=== PATIENT | female | born 1990 | race Hispanic/Latino ===

== ENCOUNTER → 2020-01-18 09:31 | Outpatient (CLI) | payer OTHER, MEDICAID, SELFPAY ==
[2020-01-18 10:43] LABS: Appearance Urine UA CLEAR; Bilirubin Urine UA NEGATIVE (NEGATIVE); Color Urine UA YELLOW; Glucose Urine UA NEGATIVE (Negative); Ketones Urine UA NEGATIVE (NEGATIVE); Leukocyte Esterase Urine UA TRACE (NEGATIVE); Nitrite Urine UA NEGATIVE (Negative); Occult Blood Urine UA NEGATIVE (Negative); Protein Urine UA NEGATIVE (Negative); Urobilinogen Urine UA 0.2 E.U./dL (0.2)
[2020-01-18 10:47] LABS: RBC Urine None Seen (0-5/HPF)
[2020-01-18 11:12] LABS: Squamous Epithelial Cell Urine 5-10 /HPF (0-5/HPF); WBC Urine 1-5/HPF (0-5/HPF)
[2020-01-18 11:13] LABS: Bacteria Urine Few (2-10); Culture Indicated Urine Cult Not Indicated; Sperm Urine PRESENT; Urine Comments CX ALREADY ORDERED
[2020-01-18 11:16] LABS: Add Manual Diff / Slide Review NO; Basophils Absolute Auto 0 /uL (0-100); Basophils Percent Auto 0.2 % (0-2); Eosinophils Absolute Auto 100 /uL (0-450); Eosinophils Percent Auto 0.7 % (2-4); Hematocrit 37.5 % (36-46); Hemoglobin 12.4 g/dL (12.0-16.0); Lymphocytes Absolute Auto 1900 /uL (1100-4500); Mean Corpuscular HGB Conc 33.1 % (30-36); Mean Corpuscular Hemoglobin 27.5 PG (26-34); Mean Corpuscular Volume 83.1 fL (80-100); Monocytes Absolute Auto 400 /uL (0-900); Monocytes Percent Auto 4.7 % (3-14); Neutrophils Absolute Auto 6900 /uL (1500-7000); Neutrophils Percent Auto 74.4 % (50-75); Platelet Count 223 X10^3/uL (150-400); Red Blood Cell Count 4.51 X10^6/uL (4.0-5.2); Red Cell Distribution Width 14.5 % (11.6-14.8); White Blood Cell Count 9.3 X10^3/uL (4.5-11.0)
[2020-01-18 14:56] LABS: Urine N gonorrhoeae NOT DETECTED
[2020-01-18 15:00] LABS: Urine Chlamydia NOT DETECTED
[2020-01-18 15:56] LABS: Hepatitis B Surface Antigen NEGATIVE s/c (NEGATIVE)
[2020-01-18 16:14] LABS: HIV 1 & 2 Ab/Ag 4th Gen Combo NEGATIVE (NEGATIVE); Hep C Virus Ab w/Reflex Quant NEGATIVE s/c (NEGATIVE)
[2020-01-19 05:36] LABS: RPR Screen Non Reactive (Non Reactive)
[2020-01-19 10:12] LABS: Varicella IgG Antibody 1190 index (Immune >165)
== END ==
PROVIDERS: Visit Provider Specialist
DX: Z34.81 Encounter for supervision of other normal pregnancy, first trimester (principal); Z11.3 Encounter for screening for infections with a predominantly sexual mode of transmission
CPT/HCPCS: 36415; 80055; 81003; 81015; 86787; 86803; 86850; 86900; 86901; 87086; 87389; 87491; 87591

== ENCOUNTER → 2020-01-18 09:44 | Outpatient (CLI) | payer OTHER, MEDICAID, SELFPAY | PROVIDERS: Referring Provider Specialist; Visit Provider Specialist | CPT/HCPCS: G0379 ==

== ENCOUNTER → 2020-04-04 10:20 | Outpatient (CLI) | payer OTHER, MEDICAID, SELFPAY ==
[2020-04-09 20:07] LABS: AFP, Serum 39.8 ng/mL (.); Calc Gestational Age Ultrasound (.); Estriol, Free 1.88 ng/mL (.); Inhibin A, Dimeric 243.59 pg/mL (.); Inhibin A, MoM 1.44 (.); Maternal Ethnicity Other (.); Maternal Weight 144 lbs (.); Number of Fetuses No (.); OSBR Risk 1 IN 10000 (.); Results Report (.); Test Results *Screen Negative* (.); hCG, MoM 1.22 (.); hCG, Serum 35359 mIU/mL (.)
== END ==
PROVIDERS: PCP Specialist; Referring Provider Specialist; Visit Provider Specialist
DX: Z34.82 Encounter for supervision of other normal pregnancy, second trimester (principal); Z3A.18 18 weeks gestation of pregnancy
CPT/HCPCS: 36415; 82105; 82677; 84702; 86336

== ENCOUNTER 2020-06-11 18:27 | Outpatient (CLI) | payer OTHER, MEDICAID, SELFPAY ==
[2020-06-11 19:02] LABS: Appearance Urine UA CLEAR; Bilirubin Urine UA NEGATIVE (NEGATIVE); Color Urine UA YELLOW; Glucose Urine UA NEGATIVE (Negative); Ketones Urine UA NEGATIVE (NEGATIVE); Leukocyte Esterase Urine UA 2+ (NEGATIVE); Nitrite Urine UA NEGATIVE (Negative); Occult Blood Urine UA NEGATIVE (Negative); Protein Urine UA NEGATIVE (Negative); RBC Urine None Seen (0-5/HPF); Urobilinogen Urine UA 0.2 E.U./dL (0.2)
[2020-06-11 19:10] LABS: Bacteria Urine Moderate (10-30); Culture Indicated Urine Cult Not Indicated; Squamous Epithelial Cell Urine 10-30 /HPF (0-5/HPF); WBC Urine 5-10/HPF (0-5/HPF)
== END 2020-06-11 19:45 | disposition home or self-care (01) ==
LOC: LABOR 18:46 → OB 06-12 08:32
PROVIDERS: Referring Provider Obstetrics & Gynecology; Visit Provider Obstetrics & Gynecology
DX: O36.8120 Decreased fetal movements, second trimester, not applicable or unspecified (principal); Z3A.27 27 weeks gestation of pregnancy
CPT/HCPCS: 59025; 81001; G0378; G0379

== ENCOUNTER → 2020-08-05 13:19 | Outpatient (CLI) | payer OTHER, MEDICAID, SELFPAY ==
[2020-08-08 22:01] LABS: Strep Grp B PCR NEG for Grp B Strep
== END ==
PROVIDERS: PCP Family Medicine; Visit Provider Specialist
DX: Z34.83 Encounter for supervision of other normal pregnancy, third trimester (principal); Z3A.36 36 weeks gestation of pregnancy
CPT/HCPCS: 87653

== ENCOUNTER 2020-08-29 09:12 | Inpatient (IN) | payer OTHER, MEDICAID, SELFPAY ==
[2020-08-29] MEDS: LACTATED RINGERS 1,000 ML 1000 ML IV ×3 (11:15→14:12)
[2020-08-29 11:33] LABS: Add Manual Diff / Slide Review NO; Basophils Absolute Auto 100 /uL (0-100); Basophils Percent Auto 0.6 % (0-2); Eosinophils Absolute Auto 100 /uL (0-450); Eosinophils Percent Auto 1.1 % (2-4); Hematocrit 30.2 % (36-46); Hemoglobin 10.2 g/dL (12.0-16.0); Lymphocytes Absolute Auto 2200 /uL (1100-4500); Lymphocytes Percent Auto 23.9 % (25-40); Mean Corpuscular HGB Conc 33.9 % (30-36); Mean Corpuscular Hemoglobin 26.1 PG (26-34); Mean Corpuscular Volume 76.9 fL (80-100); Monocytes Absolute Auto 600 /uL (0-900); Monocytes Percent Auto 6.1 % (3-14); Neutrophils Absolute Auto 6300 /uL (1500-7000); Neutrophils Percent Auto 68.3 % (50-75); Platelet Count 170 X10^3/uL (150-400); Red Blood Cell Count 3.93 X10^6/uL (4.0-5.2); Red Cell Distribution Width 15.3 % (11.6-14.8); White Blood Cell Count 9.2 X10^3/uL (4.5-11.0)
--- NOTE | 2020-08-29 12:07 | PM.PREOP ---
Pre-operative Note COVID-19 COVID-19 status: Negative Result date/Date tested (Pos, Neg/Pending): 08/27/20 Interval Note History & Physical reviewed/Exam performed by Physician: Yes Changes to H&P: No
--- NOTE | 2020-08-29 12:15 | P.HPOB_ITS ---
OB HPI Date/Time Date of admission: 08/29/20 Date Patient Seen: 08/29/20 Time Patient Seen: 12:15 History of Present Condition Chief complaint: REPEAT : 2 Para: 1 Estimated Date of Delivery: 09/04/20 Estimated Gestational Age (weeks): 39 Narrative: Chasity Mackay is a 30 year old female admitted for repeat section at 39 weeks Indications Operative indications ( section): previous uterine surgery (Prior C- section) History of Present care: good care, initiated at week # (7), number of visits (10) and pounds weight gain (18) Dating criteria: based on 1st trimester US only Ultrasounds: normal mid trimester US Obstetrical complications: none Medical complications: none Preadmission Labs Blood type: A (-) negative -: Antibody screen: negative, GBS status: negative, HBsAG: negative, HIV: negative and RPR/VDLR: negative -: Chlamydia screen: not detected and Gonorrhea screen: not detected -: Rubella: immune and Varicella: immune HCAB: negative Quad screen: Normal 1 hr GTT: 131 Prior (ies) History: 08/07/2016 41 week gestation, for distress with general anesthesia female infant weighing 6 lb 4 oz Evaluation Evaluation Baseline heart rate: 120 Variability: Moderate (11-25) monitor accelerations: Present monitor decelerations: Absent Contraction Frequency (minutes): 7 Uterine Contraction Intensity: Mild Category of Tracing: Reactive Status: Category l Laboratory results: Laboratory Tests 08/29/20 11:15 WBC 9.2 RBC 3.93 L Hgb 10.2 L Hct 30.2 L MCV 76.9 L MCH 26.1 MCHC 33.9 RDW 15.3 H Plt Count 170 Neut % (Auto) 68.3 Lymph % (Auto) 23.9 L [place] % (Auto) 6.1 Eos % (Auto) 1.1 L Baso % (Auto) 0.6 Neut # (Auto) 6300 Lymph # (Auto) 2200 [place] # (Auto) 600 Eos # (Auto) 100 Baso # (Auto) 100 PFSH Medical History (Updated 08/12/20 @ 09:04 by Nivia Whitaker MD) Anxiety Headache (~2011) Hepatic steatosis Irregular menstrual cycle (~2001) Surgical History (Updated 03/04/20 @ 20:41 by Lynn Mendoza) Anesthesia S/P laparoscopic cholecystectomy (~01/2018) S/P primary low transverse (~08/07/16) [place] teeth removed (~2014) Family History (Updated 03/04/20 @ 20:58 by Lynn Mendoza) Mother Hypertension Father Altered renal tissue perfusion Depression Stroke Grandfather No problems noted. 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 : wants to be a nurse here in the ) occupational status: unemployed current occupational exposures/hazards: No special bj needs: No Smoking Status: Never smoker second hand exposure: No alcohol intake: former (pre- : occasional ) substance use type: does not use Meds Home Medications and Allergies Home Medications Medication Instructions Recorded Confirmed Type prenat.vits,chika,bug-yswf-jolsl 1 tab PO DAILY 01/17/20 08/12/20 History fluconazole 150 mg tablet 150 mg PO Q3D #2 tab 05/08/20 08/12/20 Rx omeprazole 40 mg capsule,delayed 40 mg PO DAILY #30 cap 07/18/20 08/12/20 Rx release Allergies Allergy/AdvReac Type Severity Reaction Status Date / Time No Known Drug Allergies Allergy Verified 06/03/20 09:34 Review of Systems Review of Systems Narrative: Patient denies headaches, scotomata, epigastric pain. Good movement. No leakage of fluid. No significant contractions. ROS: Yes All systems reviewed with the patient and are negative except as otherwise documented Exam Vital Signs (past 8 hours): Blood pressure 105/66, pulse 71, temperature 35.5? Narrative Exam Narrative: HEENT exam within normal limits. Lungs are clear to auscultation percussion. Heart is regular rate and rhythm no S3-S4 or murmurs. Abdomen is gravid. Fetus is vertex. Extremities without edema and nontender. Objective Labs Result Diagrams: 08/29/20 11:15 Labs: Laboratory Results - last 24 hr 08/29/20 11:15 WBC 9.2 RBC 3.93 L Hgb 10.2 L Hct 30.2 L MCV 76.9 L MCH 26.1 MCHC 33.9 RDW 15.3 H Plt Count 170 Neut % (Auto) 68.3 Lymph % (Auto) 23.9 L [place] % (Auto) 6.1 Eos % (Auto) 1.1 L Baso % (Auto) 0.6 Neut # (Auto) 6300 Lymph # (Auto) 2200 [place] # (Auto) 600 Eos # (Auto) 100 Baso # (Auto) 100 Assessment and Plan Assessment and Plan Assessment and Plan narrative: 39 week gestation for repeat section. Patient was COVID negative 2 days ago. Time Spent with Patient Total time spent with greater than 50% in coordination of care (as documented) at patient's floor/unit and/or counseling patient:: less than 15 minutes
[2020-08-29 12:22] VITALS: BP 101/66
[2020-08-29] MEDS: CEFAZOLIN 2 GM/100 ML FROZ.PIGGY IV (13:51)
--- NOTE | 2020-08-29 14:17 | SUR.OPER ---
Supine on Padded OR bed, head on pillow, safety belt at thigh, arms secured on padded arm boards at <90 degrees abduction. Bump under right buttock. Legs uncrossed with pillow under knees, gel pad to heels, tape over blanket to lower legs.
--- NOTE | 2020-08-29 14:17 | SUR.OPER ---
Viable male baby born at 1410. Placenta delivered at 1411. cord blood tubes X2 and placenta given to Taylor Haddad&Allen RODRIGES.
[2020-08-29 14:48] VITALS: BP 93/58; PULSE 68; RESP 12; TEMP 36.6; O2SAT 100
[2020-08-29 14:51] VITALS: BP 99/59; PULSE 69; RESP 14; O2SAT 100
--- NOTE | 2020-08-29 14:54 | P.OP_ITS ---
Operative Date/Time/Diagnoses Date of procedure: 08/29/20 Time of procedure: 14:54 Pre-op diagnosis: 39 week gestation with prior section Post-op diagnosis: same Procedure & Clinicians Procedure: repeat low-transverse section Same procedure as scheduled: Yes Indications: 39 week gestation with prior section Surgeon: Nivia Whitaker Site Superintendent: Loni Lockhart Click Yes if Unassisted: No Anesthesia Type: Spinal Operative Notes Findings: normal tubes, and ovaries, uterus with viable male , Apgars of 8 and 9, weight 8 lb 4 oz Closure Type: primary Specimen(s): none sent Applied: catheter ( Eubanks) Estimated Blood Loss (mL): 300 Blood products transfused: none Procedure in detail: The patient was brought to the operating room where she underwent a spinal for anesthesia. She was placed in a supine position with a left lateral tilt. A Eubanks catheter was placed. Pulsatile stockings were placed and functional throughout the case. 2 g of Ancef were given IV prior to the incision. Warming was in place. The patient was prepped and draped in usual sterile fashion. A low transverse incision was made with a scalpel and the incision was carried down to the fascial layer which was incised transversely with scissors. The training and development assistant did her side of the incision. The midline attachments are superiorly and inferiorly. Some bleeding was controlled Bovie. The rectus muscles were in the midline and the peritoneal incision was made with no damage to internal structures. The peritoneum was incised and superiorly and inferiorly. The incision was stretched with the surgeon and training and development assistant placing traction. Bladder blade was placed and a bladder flap was developed and the bladder held away from the lower uterine segment. An incision was made in the uterus with the scalpel and the incision was extended with stretching. The head was elevated out of the abdomen and with fundal pressure by the training and development assistant the baby was delivered. The was bulb suctioned for clear fluid and handed off to the warmer. Cord blood was collected. The placenta delivered spontaneously with traction. The uterus was cleaned with clean laps. The uterine incision was closed in 2 layers of 0 chromic suture the first a running locking layer the second an imbricating layer. The training and development assistant was helping to expose the incision. The bladder peritoneum was repaired with 2- 0 Vicryl suture. The gutters were cleaned of any remaining fluids and ovaries and tubes were observed to be normal. Adequate hemostasis was noted. The perineum was closed with 2-0 Vicryl suture. The fascia layer was closed with 0 Vicryl suture with 2 stitches. The training and development assistant repairing half the incision with helping to retract and expose the incision for the other half. The incision was irrigated and adequate hemostasis noted. The incision was closed with interrupted 3-0 Vicryl sutures and then a subcuticular stitch of 4-0 Vicryl suture. Steri-Strips were placed. The uterus was massaged to remove any clots. The patient went to recovery room in good condition. Counts of instruments and sponges were correct. Dr. Lockhart was present throughout the case to assist with retraction, fundal pressure to deliver the , and suturing half the fascia. Complications: none Post-operative Condition: stable Disposition: other ( Center) Plan for aftercare: routine post section care
[2020-08-29 14:56] VITALS: BP 99/60; PULSE 64; RESP 14; O2SAT 100
[2020-08-29 15:01] VITALS: BP 94/58; PULSE 55; RESP 14; O2SAT 100
[2020-08-29 15:13] VITALS: BP 100/61; PULSE 73; RESP 16; TEMP 36.1; O2SAT 100
--- NOTE | 2020-08-29 15:23 | SUR.PHASEI ---
BEDSIDE REPORT GIVEN TO ROBYN PUGH RN. PATIENT IS STABLE CONDITION.
[2020-08-29] MEDS: OXYCODONE IR 5 MG TABLET PO ×2 (16:01→21:00)
[2020-08-29] MEDS: LACTATED RINGERS 1,000 ML 100 ML IV ×2 (16:02→23:08)
[2020-08-29] MEDS: ONDANSETRON 4 MG/2 ML INJ IV (18:54)
[2020-08-29] MEDS: KETOROLAC 30 MG/ML VIAL IV (21:00)
[2020-08-29] MEDS: LANOLIN OINT 7 GM 1 APPLIC TOP (21:11)
[2020-08-30] MEDS: OXYCODONE IR 5 MG TABLET PO ×2 (01:17→08:13)
[2020-08-30 03:12] VITALS: TEMP 37.1
[2020-08-30] MEDS: KETOROLAC 30 MG/ML VIAL IV ×2 (03:12→08:12)
[2020-08-30] MEDS: ONDANSETRON 4 MG/2 ML INJ IV (03:20)
[2020-08-30 06:44] LABS: Add Manual Diff / Slide Review NO; Basophils Absolute Auto 0 /uL (0-100); Basophils Percent Auto 0.4 % (0-2); Eosinophils Absolute Auto 100 /uL (0-450); Eosinophils Percent Auto 0.6 % (2-4); Hematocrit 24.3 % (36-46); Hemoglobin 8.1 g/dL (12.0-16.0); Lymphocytes Absolute Auto 2000 /uL (1100-4500); Lymphocytes Percent Auto 20.1 % (25-40); Mean Corpuscular HGB Conc 33.2 % (30-36); Mean Corpuscular Hemoglobin 25.8 PG (26-34); Mean Corpuscular Volume 77.7 fL (80-100); Monocytes Absolute Auto 700 /uL (0-900); Neutrophils Absolute Auto 7200 /uL (1500-7000); Neutrophils Percent Auto 71.9 % (50-75); Platelet Count 147 X10^3/uL (150-400); Red Blood Cell Count 3.12 X10^6/uL (4.0-5.2); Red Cell Distribution Width 15.2 % (11.6-14.8)
[2020-08-30] MEDS: DOCUSATE 250 MG CAPSULE PO (08:12)
--- NOTE | 2020-08-30 09:48 | PM.OBDS.1 ---
Discharge Providers Provider Date of admission: 08/29/20 09:12 Discharge Date: 08/30/20 Primary care physician: Osmel Valdes MD Consults: 08/29/20 15:39 Consult to Director Human Services Routine Comment: Discharge provider: Nivia Whitaker MD Summary Hospital Course Date Patient Seen: 08/30/20 Time Patient Seen: 09:48 Diagnoses: Repeat low-transverse section Hospital Course: Patient was admitted for repeat low-transverse section. She is urinating well, ambulatory, without significant pain. She is passing gas. She is tolerating regular diet. She denies headaches, scotomata, epigastric pain. Breast-feeding is going well. Peripartum Data Infant Delivery Method: Section (Repeat) Procedures: Repeat low-transverse section complications: none 1: Gender: Male Disposition of : home Discharge Diagnosis (1) S/P repeat low transverse : Status: Acute Status at Discharge Cognitive/behavioral status at discharge: oriented Functional status at discharge: independent ambulation Overall status at discharge: patient is progressing back to baseline Time Spent with Patient Time attestation: Total time spent providing and/or coordinating discharge services: Time spent: Less than 30 minutes Objective Labs Result Diagrams: 08/30/20 06:30 Labs: Laboratory Results - last 24 hr 08/29/20 08/29/20 08/30/20 11:15 11:15 06:30 WBC 9.2 RBC 3.93 L Hgb 10.2 L Hct 30.2 L MCV 76.9 L MCH 26.1 MCHC 33.9 RDW 15.3 H Plt Count 170 Neut % (Auto) 68.3 Lymph % (Auto) 23.9 L [place] % (Auto) 6.1 Eos % (Auto) 1.1 L Baso % (Auto) 0.6 Neut # (Auto) 6300 Lymph # (Auto) 2200 [place] # (Auto) 600 Eos # (Auto) 100 Baso # (Auto) 100 Blood Type A Negative Antibody Screen Positive Antibody Identification Anti-D Maternal Bleed Negative 08/30/20 06:30 WBC 10.0 RBC 3.12 L Hgb 8.1 L Hct 24.3 L MCV 77.7 L MCH 25.8 L MCHC 33.2 RDW 15.2 H Plt Count 147 L Neut % (Auto) 71.9 Lymph % (Auto) 20.1 L [place] % (Auto) 7.0 Eos % (Auto) 0.6 L Baso % (Auto) 0.4 Neut # (Auto) 7200 H Lymph # (Auto) 2000 [place] # (Auto) 700 Eos # (Auto) 100 Baso # (Auto) 0 Blood Type Antibody Screen Antibody Identification Maternal Bleed Exam Vital Signs (past 8 hours): Blood pressure 108/68, pulse of 83, temperature 99.4?- 08/30/20 03:12 Temperature 98.8 F Oxygen Delivery Method Room Air Oxygen Flow Rate 0 Narrative Exam Narrative: Abdomen is soft, nontender. Uterus is firm, at U, appropriately tender. Dressing is clean, dry, intact. Mild lochia. Extremities with trace edema and nontender. Patient is Rh negative babies Rh positive she will receive RhoGAM prior to discharge, she is rubella immune, she received Tdap in the 3rd trimester. Discharge Plan Discharge Plan Patient Disposition: Home Discharge orders & Medications Prescriptions: New ibuprofen 600 mg Tablet 600 mg PO Q6HR PRN (Reason: Fever/Mild Pain (1-3)) Qty: 30 RF: 0 oxycodone 5 mg Tablet 5 mg PO Q4HR PRN (Reason: Pain, Moderate (4-6)) Qty: 30 RF: 0 ferrous gluconate 324 mg (37.5 mg iron) tablet 324 mg PO DAILY Qty: 30 RF: 0 Continued prenat.vits,chika,umf-sdbv-cuybj Tablet 1 tab PO DAILY RF: 0 Follow up/Referrals: Nivia Whitaker MD [Physician] - 09/04/20 (Follow-up in [facility] with Dr. Whitaker) Osmel Valdes MD [Primary Care Provider] - Diet/Activity/Treatments Diet: Regular Activity: Nothing in vagina or lifting over 20 lb for 6 weeks Skin/Wound/Dressing Care Report to your healthcare provider any signs of infection, such as:: chills, fever, increased pain, unusual drainage and unusual redness Dressing: May remove dressing tonight. Leave Steri-Strips in place. Can get wet just pat dry Visit Report/Discharge Packet Stand Alone Forms: Discharge: Care Discharge Data Primary Care Provider: Osmel Valdes
[2020-08-30 12:06] VITALS: BP 111/60; PULSE 74; RESP 17; TEMP 37
[2020-08-30] MEDS: RHO(D) IMMUNE GLOBULIN 1,500 UNIT SYRINGE 1500 UNIT IM (15:33)
== END 2020-08-30 15:45 | disposition home or self-care (01) | DRG 540 ==
PROVIDERS: Admitting Provider Specialist; PCP Family Medicine; Referring Provider Specialist; Visit Provider Specialist
PROC: 10D00Z1 Extraction of Products of Conception, Low, Open Approach (ICD-10-PCS; CPT 59514; principal; 2020-08-29 11:15)
DX: O34.211 Maternal care for low transverse scar from previous cesarean delivery (principal); Z3A.39 39 weeks gestation of pregnancy; Z37.0 Single live birth
CPT/HCPCS: 36415; 59050; 59514; 85025; 85461; 86850; 86870; 86900; 86901; J0690; J1885; J2274; J2405; J2590; J2790

== ENCOUNTER → 2023-06-23 08:33 | Outpatient (CLI) | payer OTHER, MEDICAID, SELFPAY ==
[2023-06-23 08:43] LABS: Miscellaneous to LabCorp NATERA
[2023-06-23 10:22] LABS: Alanine Aminotransferase 39 IU/L (<35); Albumin 4.2 g/dL (3.5-5.0); Albumin Globulin Ratio 1.4 (1.0-2.8); Alkaline Phosphatase 62 U/L (38-126); Aspartate Aminotransferase 32 IU/L (14-36); BUN Creatinine Ratio 18.4 (6-22); Bilirubin Total 0.5 mg/dL (0.2-1.3); Blood Urea Nitrogen 9 mg/dL (7-17); Calcium 9.6 mg/dL (8.4-10.2); Carbon Dioxide 22 mmol/L (22-32); Chloride 102 mmol/L (98-107); Estimated Glomerular Filt Rate > 60 mL/min (>60); Globulin 3.1 g/dL (1.7-4.1); Glucose 82 mg/dL (70-100); HEMOLYSIS < 15 (0-50); Potassium 3.8 mmol/L (3.4-5.1); Sodium 134 mmol/L (137-145); Total Protein 7.3 g/dL (6.3-8.2)
[2023-06-23 10:25] LABS: Urine N gonorrhoeae NOT DETECTED
[2023-06-23 10:27] LABS: Urine Chlamydia NOT DETECTED
[2023-06-23 10:58] LABS: Hepatitis B Surface Antigen NEGATIVE s/c (NEGATIVE)
[2023-06-23 11:15] LABS: Hep C Virus Ab w/Reflex Quant NEGATIVE s/c (NEGATIVE)
== END ==
PROVIDERS: PCP Student in an Organized Health Care Education/Training Program; Referring Provider Student in an Organized Health Care Education/Training Program; Visit Provider Student in an Organized Health Care Education/Training Program
DX: Z34.81 Encounter for supervision of other normal pregnancy, first trimester (principal); K76.0 Fatty (change of) liver, not elsewhere classified; Z3A.10 10 weeks gestation of pregnancy
CPT/HCPCS: 36415; 80053; 86803; 86850; 86900; 86901; 87086; 87340; 87491; 87591

== ENCOUNTER → 2023-08-04 10:29 | Outpatient (CLI) | payer OTHER, MEDICAID, SELFPAY ==
[2023-08-05 15:22] LABS: Candida species Positive (Negative); Gardnerella vaginalis Positive (Negative); Trichomoas vaginalis Negative (Negative)
== END ==
PROVIDERS: PCP Student in an Organized Health Care Education/Training Program; Visit Provider Student in an Organized Health Care Education/Training Program
DX: O34.219 Maternal care for unspecified type scar from previous cesarean delivery (principal); N89.8 Other specified noninflammatory disorders of vagina
CPT/HCPCS: 87086; 87480; 87510; 87660

== ENCOUNTER → 2023-08-04 10:38 | Outpatient (CLI) | payer OTHER, MEDICAID, SELFPAY ==
[2023-08-04 11:59] LABS: Add Manual Diff / Slide Review NO; Basophils Absolute Auto 0 /uL (0-100); Basophils Percent Auto 0.4 % (0-2); Eosinophils Absolute Auto 100 /uL (0-450); Eosinophils Percent Auto 1.1 % (2-4); Hematocrit 31.8 % (36-46); Hemoglobin 11.1 g/dL (12.0-16.0); Lymphocytes Absolute Auto 2000 /uL (1100-4500); Lymphocytes Percent Auto 20.7 % (25-40); Mean Corpuscular HGB Conc 34.9 % (30-36); Mean Corpuscular Hemoglobin 28.7 PG (26-34); Mean Corpuscular Volume 82.3 fL (80-100); Monocytes Absolute Auto 500 /uL (0-900); Monocytes Percent Auto 5.3 % (3-14); Neutrophils Absolute Auto 6900 /uL (1500-7000); Neutrophils Percent Auto 72.5 % (50-75); Platelet Count 206 X10^3/uL (150-400); Red Blood Cell Count 3.86 X10^6/uL (4.0-5.2); Red Cell Distribution Width 14.7 % (11.6-14.8); White Blood Cell Count 9.5 X10^3/uL (4.5-11.0)
[2023-08-05 04:38] LABS: RPR Screen Non Reactive (Non Reactive)
[2023-08-05 17:44] LABS: HIV 1 & 2 Ab/Ag 4th Gen Combo NEGATIVE (NEGATIVE); Hepatitis B Surface Antigen NEGATIVE s/c (NEGATIVE); Rubella Antibody IgG 30.5 IU/mL (>15)
[2023-08-06 08:25] LABS: Varicella IgG Antibody 877 index (Immune >165)
[2023-08-06 22:34] LABS: AFP Value 36.3 ng/mL (.); Gest Age on Col Date 16.7 weeks (.); Gestational Age As provided (.); Insulin Dep Diabetes No (.); OSBR Risk 1IN 10000 (.); Results Report (.); Test Results *Screen Negative* (.)
== END ==
PROVIDERS: PCP Student in an Organized Health Care Education/Training Program; Referring Provider Student in an Organized Health Care Education/Training Program; Visit Provider Student in an Organized Health Care Education/Training Program
DX: O34.219 Maternal care for unspecified type scar from previous cesarean delivery (principal); O99.891 Other specified diseases and conditions complicating pregnancy; N89.8 Other specified noninflammatory disorders of vagina; Z3A.16 16 weeks gestation of pregnancy
CPT/HCPCS: 36415; 80055; 82105; 86787; 87086; 87389; 87480; 87510; 87660

== ENCOUNTER → 2023-08-30 08:16 | Outpatient (CLI) | payer OTHER, MEDICAID, SELFPAY ==
--- NOTE | 2023-08-30 08:18 | DI.US.S_ITS ---
PROCEDURE: US OB >= 14 WEEKS FETUS INDICATIONS: ANATOMY OUTSIDE/PRIOR DATING DATA: Last menstrual period (LMP): 04/09/2023 LMP-based estimated date of delivery (ILIA): 12/24/2023. First dating scan (date and location): 05/26/2023. Estimated date of delivery (ILIA) from first dating scan: 01/14/2024. TECHNIQUE: Real-time scanning was performed of the fetus, with image documentation and biometric measurements. COMPARISON: [facility], OB <= 14 WEEKS FETUS, 06/23/2023, 8:27. Merged with [facility], OB >= 14 WEEKS FETUS, 06/03/2020, 9:53. FINDINGS: General: A single living intrauterine gestation is present. Presentation: Breech. Placenta: Placental position is posterior , without previa. Amniotic fluid index: 11.2 cm, normal range is 5-24 cm. Single deepest vertical pocket is 4.9 cm. heart rate: 144 beats per minute. Maternal cervical canal: 3.1 cm long. Normal lower limit is 2.5 cm. biometrics: Biparietal diameter: 21 weeks 1 day Head circumference: 20 weeks 4 days Abdominal circumference: 21 weeks 6 days Femur length: 20 weeks 3 days Clinically estimated gestational age: 20 weeks 3 days Composite gestational age from present scan: 21 weeks Estimated weight and percentile: 4 1 g; 80 second percentile Anatomic survey: Neuro: Ventricles are non-dilated at less than 10 mm. Cisterna magna is normal at 3-11 mm. Cerebellum is normal in size and morphology. Nuchal skin fold: Normal at less than 6 mm between 14-21 weeks gestational age. Face: Nose and lips, facial profile are normal. Spine: No evidence for spina bifida. Heart: 4-chambered heart is present, with normal ventricular outflow tracts. Diaphragm: Diaphragm is intact. Stomach: Left-sided stomach is present. Kidneys: No hydronephrosis. Normal is less than 5 mm in 2nd trimester, less than 7 mm in 3rd trimester. Cord: 3-vessel cord has orthotopic insertion. Bladder: Normal in size. Extremities: All 4 extremities identified. IMPRESSION: 1. Single living IUP redemonstrated and interval growth is normal. 2. Normal anatomic survey. We strive to produce accurate, complete, and clear reports of imaging services. To assist us in improving patient care, this report was composed using standard report templates and voice recognition software. Therefore, it may contain abnormal punctuation, insertions and/or omissions. Occasional wrong-word or sound-alike substitutions may occur. Though we review the report and make efforts to correct it, we do recommend that the report be read carefully in proper context to recognize any text inaccuracies. Dictated by: Mj MCCOLLUM Interpreted: Crow Vinson MD on 08/30/2023 at 9:54 Transcribed by: TATIANA on 08/30/2023 at 9:57 Approved by: Crow Vinson M.D. on 08/30/2023 at 22:08
== END ==
LOC: US 08:16
PROVIDERS: PCP Student in an Organized Health Care Education/Training Program; Referring Provider Student in an Organized Health Care Education/Training Program; Visit Provider Student in an Organized Health Care Education/Training Program
DX: O34.219 Maternal care for unspecified type scar from previous cesarean delivery (principal); O99.891 Other specified diseases and conditions complicating pregnancy; N89.8 Other specified noninflammatory disorders of vagina; Z3A.21 21 weeks gestation of pregnancy
CPT/HCPCS: 76811; 87480; 87510; 87660

== ENCOUNTER → 2023-08-30 16:03 | Outpatient (CLI) | payer OTHER, MEDICAID, SELFPAY ==
[2023-09-01 13:36] LABS: Candida species Positive (Negative); Gardnerella vaginalis Positive (Negative); Trichomoas vaginalis Negative (Negative)
== END ==
PROVIDERS: PCP Student in an Organized Health Care Education/Training Program; Visit Provider Obstetrics & Gynecology
DX: N89.8 Other specified noninflammatory disorders of vagina (principal)
CPT/HCPCS: 87480; 87510; 87660

== ENCOUNTER → 2023-10-02 08:37 | Outpatient (CLI) | payer OTHER, MEDICAID, SELFPAY ==
[2023-10-02 11:05] LABS: Hematocrit 28.9 % (36-46)
[2023-10-02 11:37] LABS: GTT (PREG) 1 Hour PP 50gm Dose 129 mg/dL (76-139)
== END ==
LOC: LAB 08:39
PROVIDERS: PCP Student in an Organized Health Care Education/Training Program; Referring Provider Student in an Organized Health Care Education/Training Program; Visit Provider Student in an Organized Health Care Education/Training Program
DX: O26.899 Other specified pregnancy related conditions, unspecified trimester (principal); Z67.91 Unspecified blood type, Rh negative; Z3A.25 25 weeks gestation of pregnancy
CPT/HCPCS: 36415; 82950; 85014; 85018; 86850

== ENCOUNTER → 2023-12-17 10:31 | Outpatient (CLI) | payer OTHER, MEDICAID, SELFPAY ==
[2023-12-17 11:03] LABS: Hematocrit 32.5 % (36-46); Hemoglobin 11.3 g/dL (12.0-16.0)
[2023-12-18 16:44] LABS: Strep Grp B PCR NEG for Grp B Strep
== END ==
PROVIDERS: PCP Student in an Organized Health Care Education/Training Program; Referring Provider Student in an Organized Health Care Education/Training Program; Visit Provider Student in an Organized Health Care Education/Training Program
DX: O99.019 Anemia complicating pregnancy, unspecified trimester (principal); Z3A.36 36 weeks gestation of pregnancy
CPT/HCPCS: 36415; 85014; 85018; 87653

== ENCOUNTER 2024-01-07 06:07 | Inpatient (IN) | payer OTHER, MEDICAID, SELFPAY ==
--- NOTE | 2024-01-07 | PATH_ITS ---
[facility] Accession Number: [id number] No. of containers..01 Tissue . 01 Material submitted: . fallopian tube - BILATERAL FALLOPIAN TUBES . 01 Diagnosis: BILATERAL FALLOPIAN TUBES, BILATEAL SALPINGECTOMY: Complete cross-section of bilateral fimbriated fallopian tube identified without any significant pathologic alterations. ANJEL 01/10/2024 1422 Local . 01 Electronically signed: . Chantell Mulligan MD, Pathologist NPI- [id number] . 01 Gross description: . Received in formalin with two identifiers and bilateral fallopian tubes, are two unoriented fimbriated fallopian tubes 6.5 x 1.0 cm and 8.4 x 0.8 cm respectively. Both tubes have violaceous, smooth serosa with no cysts identified. The lumen are stellate and unremarkable. Human Factors Specialist sections to include one-half of bisected fimbriae and cross-sections are submitted as follows: A1: Longer tube. A2: [place] tube. ([id number]) /ANJEL 01/08/2024 2347 Local . 01 Pathologist provided ICD-10: Z30.2, N93.9 . 01 CPT . 271696 Specimen Comment: A courtesy copy of this report has been sent to [facility] Pathology Performed at: [address], [place], [place] [id number] MD Jamil Alegria MD Phone: [phone]
[2024-01-07 07:10] VITALS: BP 108/69
[2024-01-07] MEDS: LACTATED RINGERS 1,000 ML 999 ML IV (07:10)
[2024-01-07 07:37] LABS: Add Manual Diff / Slide Review NO; Basophils Absolute Auto 0 /uL (0-100); Basophils Percent Auto 0.4 % (0-2); Eosinophils Absolute Auto 100 /uL (0-450); Eosinophils Percent Auto 1.4 % (2-4); Hematocrit 32.5 % (36-46); Hemoglobin 11.2 g/dL (12.0-16.0); Lymphocytes Absolute Auto 2400 /uL (1100-4500); Lymphocytes Percent Auto 29.5 % (25-40); Mean Corpuscular HGB Conc 34.3 % (30-36); Mean Corpuscular Hemoglobin 28.5 PG (26-34); Mean Corpuscular Volume 82.9 fL (80-100); Monocytes Absolute Auto 700 /uL (0-900); Monocytes Percent Auto 8.4 % (3-14); Neutrophils Absolute Auto 4900 /uL (1500-7000); Neutrophils Percent Auto 60.3 % (50-75); Platelet Count 162 X10^3/uL (150-400); Red Blood Cell Count 3.92 X10^6/uL (4.0-5.2); Red Cell Distribution Width 15.2 % (11.6-14.8); White Blood Cell Count 8.2 X10^3/uL (4.5-11.0)
--- NOTE | 2024-01-07 07:39 | PM.OBHP.1 ---
OB HPI Date/Time Date of admission: 01/07/24 Date Patient Seen: 01/07/24 Time Patient Seen: 07:44 History of Present Condition Chief complaint: Repeat w/radha salpingectomies : 3 Para: 2 Estimated Date of Delivery: 01/14/24 Estimated Gestational Age (weeks): 39+0 Narrative: Chasity Mackay is a 33 year old female Comments: presenting for planned repeat with bilateral salpingectoy for sterilization. Pt reports feeling well, occasional contractions. Denies leaking fluid, vaginal bleeding, decreased movement. Is still certain she never wants to be again. Indications Operative indications ( section): previous uterine surgery History of Present care: good care Dating criteria: LMP confirmed by 1st trimester US Ultrasounds: normal mid trimester US Narrative: Ultrasound Ultrasound Details:: Dating sono 05/26/23: stuart intrauterine gestation at 6+5wks (CRL 0.83cm); FHR 136, normal appearing uterus, bilateral ovaries, and cervix Anatomy sono 08/30/23: normal anatomy, posterior placenta, EFW 80%ile Expected Delivery Route/Plan Planned repeat C/S Specific Issues/Plans Anemia of (H/H 10.0/28.9)--> [ x] repeat H/H at 36wks (11.3/32.5) low risk XX cfDNA, normal AFP Planned repeat C/S --> scheduled for 01/06 Patient desires permanent sterilization--> [facility] tubal ligation consent form signed for bilateral salpingectomy 10/25/23 s/p open adam Rh negative--> [ X] rhogam 28wks Nigel Assigned to [facility] Preadmission Labs Blood type: A (-) negative -: Antibody screen: negative, Cystic fibrosis screen: negative, GBS status: negative, HBsAG: negative, HIV: negative, HSV 1: negative, HSV 2: negative and RPR/VDLR: negative -: Chlamydia screen: not detected and Gonorrhea screen: not detected -: Rubella: immune and Varicella: immune HCT: 32.5 HCAB: negative PAP: Normal Quad screen: Normal 1 hr GTT: 129 Evaluation Evaluation Baseline heart rate: 120 Variability: Moderate (11-25) monitor accelerations: Present Monitor Decelerations: Absent Contraction Frequency (minutes): 8 Category of Tracing: Reactive PFSH Medical History (Updated 12/17/23 @ 10:37 by Teri Phipps DO) Depression Acute on chronic blood loss anemia Irregular menstrual cycle (~2001) Anxiety Hepatic steatosis Headache (~2011) Surgical History (Updated 10/01/23 @ 12:49 by Teri Phipps DO) S/P repeat low transverse (~08/29/20) Anesthesia [place] teeth removed (~2014) S/P laparoscopic cholecystectomy (~01/2018) S/P primary low transverse (~08/07/16) Family History (Updated 05/19/23 @ 15:43 by Trina Montanez, RN) Mother Hypertension Breast cancer Hepatitis C Father Altered renal tissue perfusion Depression Stroke Hypoglycemia Grandfather No problems noted. 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 a nurse in [place] 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 : wants to be a nurse here in the ) occupational status: employed ([employer] worker) current occupational exposures/hazards: No special bj needs: No travel history: recent (domestic only) seatbelt use: always water heater temp set < 120 deg: Yes working smoke detector in home: Yes fire extinguisher in home: Yes carbon monox detector in home: Yes firearms in home: No do you feel safe at home: Yes Smoking Status: Never smoker second hand exposure: Yes (coworker vapes) alcohol intake: former (1-2/week when not ) substance use type: does not use Type(s) of exercise: walking and weight lifting frequency: 5-6 times per week Meds Home Medications and Allergies Home Medications Medication Instructions Recorded Confirmed Type prenat.vits,chika,xcz-mpue-oopde 1 tab PO DAILY 01/17/20 12/31/23 History fluconazole 150 mg tablet 150 mg PO .COMPLEX 2 doses #2 tabs 09/02/23 12/31/23 Rx Allergies Allergy/AdvReac Type Severity Reaction Status Date / Time No Known Drug Allergies Allergy Verified 12/31/23 09:21 Review of Systems Review of Systems ROS: Yes All systems reviewed with the patient and are negative except as otherwise documented OB Exam Vital signs Blood Pressure: 108/69 Pulse Rate: 66 Temperature: 97.7 F HENMT Head: normal to inspection Resp Effort & Inspection: normal respiratory effort and able to speak in complete sentences Cardio Rate: regular rate Rhythm: regular rhythm Extremities Lower extremity: Yes normal to inspection GI Other: gravid, nontender, nondistended Objective Labs 01/07/24 06:30 Assessment and Plan Assessment and Plan Assessment and Plan narrative: 33yo at 39+0wks admitted for planned repeat with bilateral salpingectomy. -CBC, T&S on admission -NST on admission -neuraxial anesthesia planned -GBS neg -PPH risk low -VTE risk low, SCDs -move to OR for delivery once all teams ready consent: It was explained to the patient that a section is a surgery to deliver the baby through an incision in the abdominal wall and uterus.? All procedures can be associated with risk and unforeseen complications, which can be immediate or delayed.? Risks and complications of section include, but are not limited to:? infection of the uterus, pelvic organs, or skin; inadvertent injury to internal organs such as the bowel, bladder, or possibly even the baby; blood loss, transfusion, and/or life-threatening hemorrhage requiring hysterectomy; blood clots in the legs, pelvic organs, or lungs; adverse reaction to medications or anesthesia during surgery; development of placenta accreta spectrum in a subsequent ; and increased risk of section in a subsequent . Time Spent with Patient Total time spent with greater than 50% in coordination of care (as documented) at patient's floor/unit and/or counseling patient:: 15-24 minutes
[2024-01-07 07:40] VITALS: BP 108/69; PULSE 66; TEMP 36.5
[2024-01-07] MEDS: CITRIC ACID/SODIUM CITRATE 15 ML SOLUTION 30 ML PO (07:40)
[2024-01-07] MEDS: CEFAZOLIN 2 GM/100 ML PREMIX 100 ML IV (08:05)
[2024-01-07] MEDS: ACETAMINOPHEN IV 1,000 MG/100 ML VIAL 400 MG IV (08:10)
--- NOTE | 2024-01-07 08:47 | SUR.OPER ---
Addendum entered by Delicia Jasmine R.N. 01/07/24 09:26: DELIVERED AT 0846 Original Note: VIABLE DELIVERED AT 0847.
--- NOTE | 2024-01-07 09:53 | P.OP_ITS ---
Operative Date/Time/Diagnoses Date of procedure: 01/07/24 Time of procedure: 08:30 Pre-op diagnosis: 1. Mott intrauterine gestation at 39+0 weeks 2. History of prior 3. Undesired future fertility 4. Anemia of 5. Rh negative status Post-op diagnosis: same (delivered via [facility]) Procedure & Clinicians Procedure: Repeat low transverse section Bilateral salpingectomy Same procedure as scheduled: Yes Indications: 33yo at 39+0 weeks EGA who was admitted for planned repeat with bilateral salpingectomy for sterilization. Surgeon: Teri Phipps Click Yes if Unassisted: No Certified Massage Therapist: Mag Rojas Reason for Certified Massage Therapist: Certified Massage Therapist was necessary for timely, efficient, and safe completion of the procedure. Anesthesia Type: Spinal Operative Notes Findings: Normal-appearing uterus and bilateral fallopian tubes and ovaries. Clear fluid noted with AROM. Delivery productive of a viable female in cephalic presentation with APGARS 9/9 and weighing 3331g. Closure Type: primary Specimen(s): cord blood Intraoperative meds administered: Duramorph and Ketorolac Applied: Catheter Estimated Blood Loss (mL): 596 (QBL) Blood products transfused: none Procedure in detail: The risks, benefits, indications and alternatives of the procedure were reviewed with the patient and informed consent was obtained. The patient was taken to the operating room where spinal anesthesia was obtained without difficulty and was found to be adequate. Sequential compression devices were placed bilaterally for VTE prophylaxis. She was then prepped and draped in the normal, sterile fashion in the dorsal supine position with a leftward tilt. She received 2g Ancef for surgical prophylaxis. A Pfannenstiel skin incision was then made with the scalpel and carried through to the underlying layer of fascia. The fascia was incised in the midline and the incision extended laterally with the Cadena scissors. The superior aspect of the incision was grasped, tented up with Tegan clamps and the rectus muscles were dissected off sharply with the knife and Cadena scissors. Due to significant adhesive disease, this portion of the surgery was completed carefully and sharply, to minimize potential thermal spread injury to any structures adhered to the abdominal wall. The rectus muscles were then at the midline. The peritoneum was identified, and entered digitally. The peritoneal incision was then extended horizontally, superiorly and inferiorly by sharp dissection to mobilize the bladder and create space for delivery. The Gerard retractor was then inserted. The vesicouterine peritoneum was then identified, grasped with pick-ups, and entered sharply with Metzenbaum scissors. This incision was then extended laterally and the bladder flap was created digitally. The lower uterine segment was incised in a transverse fashion with the scalpel. The uterine incision was then extended manually in a cephalad/caudad direction. The amniotic sac was artificially ruptured, productive of clear fluid. The infant?s head delivered atraumatically through the hysterotomy without difficulty, followed by the body.? The cord was doubly clamped and cut after a 60sec delay with the handed off to the waiting pediatrics team. The placenta was then removed spontaneously with gentle traction on the umbilical cord. The uterus was then left in-situ and cleared of all clots and debris. The uterine incision was repaired with 0-vicryl in a running, locked fashion with excellent hemostasis achieved. The uterus was then exteriorized to access the adnexa. The right fallopian tube was then grasped with a [place] clamp, and elevated. The LigaSure was used to clamp, cauterize, and transect the mesosalpinx, with ultimate excision of the right fallopian tube at the cornual end. The same procedure was completed on the left side to complete the bilateral salpingectomy. Inspection of the pedicles confirmed hemostasis. The uterus was then returned to the abdomen and the hysterotomy was again noted to be hemostatic. The paracolic gutters were cleared of all clot and debris. The Gerard retractor was then removed. PerClot hemostatic powder was applied to the hysterotomy to aid in hemostasis. The rectus muscles were then inspected, and a [id number] suture was placed along the left side for hemostasis of the muscle. There was a defect in the peritoneum along the bladder reflection, that was not hemostatic, thus a 3-0 Vicryl suture was used in a running fashion to close this space for hemostatic purposes. Once hemostasis was confirmed in this layer, the fascia was then reapproximated with 0-vicryl in a running fashion. The subcutaneous layer was then irrigated, and any areas that were not hemostatic were cauterized with Bovie cautery. The subcutaneous space was then closed with 3-0 vicryl in a running two-layer fashion. The skin was closed with 4-0 monocryl in a subcuticular fashion. The incision was then dressed with steri-strips and a pressure dressing was applied. At the completion of the case, a Crede maneuver was performed with good uterine tone and minimal vaginal bleeding noted.? The patient tolerated the procedure well. Sponge, lap and needle counts were correct x3. The patient was taken to the recovery room in stable condition. Complications: none Post-operative Condition: stable Disposition: PACU Aftercare: routine postop
[2024-01-07 09:54] VITALS: BP 96/50; PULSE 80; RESP 20; TEMP 36.2; O2SAT 100
[2024-01-07 10:00] VITALS: BP 106/83; PULSE 81; RESP 20; O2SAT 100
[2024-01-07 10:05] VITALS: BP 103/59; PULSE 79; RESP 20; O2SAT 100
[2024-01-07] MEDS: LACTATED RINGERS 1,000 ML 42 ML IV (10:23)
[2024-01-07] MEDS: KETOROLAC 30 MG/ML VIAL IV ×2 (15:31→22:30)
[2024-01-07] MEDS: ONDANSETRON 4 MG/2 ML INJ IV (17:40)
[2024-01-08] MEDS: KETOROLAC 30 MG/ML VIAL IV (05:03)
[2024-01-08 08:52] LABS: Add Manual Diff / Slide Review NO; Basophils Absolute Auto 0 /uL (0-100); Basophils Percent Auto 0.2 % (0-2); Eosinophils Absolute Auto 100 /uL (0-450); Eosinophils Percent Auto 0.8 % (2-4); Hematocrit 24.7 % (36-46); Hemoglobin 8.5 g/dL (12.0-16.0); Lymphocytes Absolute Auto 1600 /uL (1100-4500); Lymphocytes Percent Auto 17.6 % (25-40); Mean Corpuscular HGB Conc 34.5 % (30-36); Mean Corpuscular Hemoglobin 28.6 PG (26-34); Mean Corpuscular Volume 82.7 fL (80-100); Monocytes Absolute Auto 600 /uL (0-900); Neutrophils Absolute Auto 6900 /uL (1500-7000); Neutrophils Percent Auto 74.4 % (50-75); Platelet Count 138 X10^3/uL (150-400); Red Blood Cell Count 2.99 X10^6/uL (4.0-5.2); Red Cell Distribution Width 15.6 % (11.6-14.8); White Blood Cell Count 9.2 X10^3/uL (4.5-11.0)
--- NOTE | 2024-01-08 09:54 | P.DS_ITS ---
Discharge Providers Provider Date of admission: 01/07/24 06:07 Discharge Date: 01/08/24 Primary care physician: Cal Mcnamara Consults: 01/07/24 10:25 Consult to Business Employment Specialist Routine Comment: Discharge provider: Teri Phipps DO Summary Hospital Course Date Patient Seen: 01/08/24 Time Patient Seen: 09:54 Diagnoses: 1. Mott intrauterine gestation at 39+0 weeks 2. History of prior 3. Undesired future fertility 4. Anemia of 5. Rh negative status Hospital Course: 33yo [id number] admitted at 39+0wks for planned repeat with bilateral salpingectomy for sterilization. Her delivery was uncomplicated, and productive of a viable female infant. Her course was notable for unremarkable. On post-op day #1, she was ambulating without dizziness/lightheadedness, tolerating regular diet, voiding spontaneously with minimal lochia. Her pain was well controlled with oral medications, thus she was discharged to home on post-op day #1. Peripartum Data Infant Delivery Method: Section Procedures: External monitoring delivery Spinal anesthesia sterilization Antibiotic prophylaxis complications: none Discharge Diagnosis (1) delivery delivered: Status: Acute (2) Anemia affecting : Status: Acute (3) Rh negative status during : Status: Acute (4) Encounter for sterilization: Status: Acute Status at Discharge Cognitive/behavioral status at discharge: oriented Functional status at discharge: independent ambulation Overall status at discharge: patient is progressing back to baseline Time Spent with Patient Time attestation: Total time spent providing and/or coordinating discharge services: Time spent: Less than 30 minutes Objective Labs 01/08/24 08:45 Labs: Laboratory Results - last 24 hr 01/08/24 08:45 WBC 9.2 RBC 2.99 L Hgb 8.5 L Hct 24.7 L MCV 82.7 MCH 28.6 MCHC 34.5 RDW 15.6 H Plt Count 138 L Neut % (Auto) 74.4 Lymph % (Auto) 17.6 L [place] % (Auto) 7.0 Eos % (Auto) 0.8 L Baso % (Auto) 0.2 Neut # (Auto) 6900 Lymph # (Auto) 1600 [place] # (Auto) 600 Eos # (Auto) 100 Baso # (Auto) 0 Exam Vital Signs (past 8 hours): Oxygen Delivery Method Room Air vitals reviewed in OBIX, within normal parameters Const General: cooperative, healthy appearing, comfortable and No acute distress Resp Effort & Inspection: normal respiratory effort GI Inspection: normal to inspection Other: fundus firm and nontender at U-2 Skin General: no rashes or lesions noted Other: Pfannenstiel skin incision clean/dry/intact with steri-strips in place Neuro General: patient alert and patient awake Extrem General: normal to inspection, no pedal edema and no calf tenderness Psych Mood: congruent mood Affect: normal affect Discharge Plan Discharge Plan Patient Disposition: Home Provider Discharge Comment: Take ibuprofen 800mg every 8hrs and tylenol 650mg every 6hrs for pain. Use oxycodone 5mg every 4hrs as needed for breakthrough pain. Take an oral iron supplement for the next 2-3 months to help your iron stores recover and your blood count improve. Avoid lifting greater than 20lbs for at least 6 weeks. Avoid placing anything in the vagina for 6wks. Discharge orders & Medications Prescriptions: New oxycodone 5 mg Tablet 5 mg PO Q4H PRN (Reason: Pain, Moderate (4-6)) Qty: 10 0RF Continued prenat.vits,chika,cmb-pres-ipzpw Tablet 1 tab PO DAILY Discontinued fluconazole 150 mg tablet 150 mg PO .COMPLEX Qty: 2 0RF Rx Instructions: 150 mg orally take one now and take another in 5 days; Follow up/Referrals: Teri Phipps DO [Physician] - (one week post incision check: January 16 at 11:00am. six week post appointment: February 17 at 11:30am. ) Diet/Activity/Treatments Diet: Diet as Tolerated Activity: As tolerated Skin/Wound/Dressing Care Skin care: You may shower normally. The steri-strips should fall off in 7 days. Report to your healthcare provider any signs of infection, such as:: chills, fever, increased pain, unusual drainage and unusual redness Visit Report/Discharge Packet Instructions: DI for , DI for Prescription Opioid Use Stand Alone Forms: Patient Portal/API, Stroke Signs & Symptoms Discharge Data Primary Care Provider: Cal Mcnamara
[2024-01-08] MEDS: DOCUSATE 100 MG CAPSULE PO (09:58)
[2024-01-08] MEDS: PRENATAL VIT,CALC/IRON/FOLIC 1 TABLET 1 TAB PO (09:58)
[2024-01-08] MEDS: FERROUS SULFATE 325 MG TABLET PO (09:58)
[2024-01-08] MEDS: ACETAMINOPHEN 325 MG TABLET 650 MG PO (09:58)
[2024-01-08 12:00] VITALS: BP 109/55; PULSE 85; RESP 15; TEMP 36.2
== END 2024-01-08 13:25 | disposition home or self-care (01) | DRG 539 ==
PROVIDERS: Admitting Provider Student in an Organized Health Care Education/Training Program; PCP Student in an Organized Health Care Education/Training Program; Referring Provider Student in an Organized Health Care Education/Training Program; Visit Provider Student in an Organized Health Care Education/Training Program
PROC: 10D00Z1 Extraction of Products of Conception, Low, Open Approach (ICD-10-PCS; CPT 59514; principal; 2024-01-07 07:45)
DX: O34.211 Maternal care for low transverse scar from previous cesarean delivery (principal); Z30.2 Encounter for sterilization; O36.0130 Maternal care for anti-D [Rh] antibodies, third trimester, not applicable or unspecified; Z3A.39 39 weeks gestation of pregnancy; Z37.0 Single live birth; Z67.11 Type A blood, Rh negative
CPT/HCPCS: 36415; 59050; 85025; 86850; 86870; 86900; 86901; J0136; J0690; J1100; J1885; J2274; J2405